=== PATIENT | female | born 1960 | race Hispanic/Latino ===

== ENCOUNTER 2021-12-24 21:21 | Emergency (ER) | payer OTHER ==
[~2021-12-24] VITALS: Ht 152.4 cm; Wt 62.1 kg
[2021-12-24] MEDS: 0.9% NACL 500ML IV.SOLN 500 ML IV ONE (21:51)
[2021-12-24] MEDS: MORPHINE 4 MG SYG IVP ONE (21:51)
[2021-12-24] MEDS: ONDANSETRON 4MG INJ IVP ONE (21:51)
[2021-12-24 21:53] LABS: BASOPHILS % (AUTO) 0.4 % (0.0-5.0); EOSINOPHILS % (AUTO) 1.8 % (0.0-8.0); HEMATOCRIT 44.7 % (36-48); MEAN CORPUSCULAR HEMOGLOBIN 29.6 pg (27.0-33.0); MEAN CORPUSCULAR HGB CONC 33.6 g/dL (32.0-36.0); MEAN CORPUSCULAR VOLUME 88.2 fL (79-99); MONOCYTES % (AUTO) 4.5 % (3.0-13.0); PLATELET COUNT (AUTO) 202 K/uL (130-400); RED BLOOD CELL COUNT(AUTO) 5.07 MIL/uL (4.00-5.50); RED CELL DISTRIBUTION WIDTH 12.4 % (11.0-15.5); WHITE BLOOD COUNT (AUTO) 9.8 K/uL (4.8-10.8)
[2021-12-24 21:58] LABS: APPEARANCE,URINE Clear (CLEAR); BILIRUBIN,URINE Negative (NEGATIVE); COLOR,URINE Yellow (YELLOW); GLUCOSE, URINE (UA) Negative (NEGATIVE); KETONES,URINE Trace mg/dL (NEGATIVE); LEUKOCYTE ESTERASE ,URINE Moderate (NEGATIVE); NITRATE,URINE Negative (NEGATIVE); OCCULT BLOOD,URINE Negative (NEGATIVE); PROTEIN,URINE Negative (NEGATIVE)
[2021-12-24 22:05] LABS: CREATININE 0.9 mg/dL (0.5-1.5); POTASSIUM 4.1 mmol/L (3.5-5.1)
[2021-12-24 22:08] LABS: ALBUMIN 4.2 g/dL (3.5-5.0); BILIRUBIN,TOTAL 0.4 mg/dL (0.2-1.0); TOTAL PROTEIN, SERUM 8.1 g/dL (6.0-8.3)
[2021-12-24 22:12] LABS: BACTERIA,URINE Few /HPF (None Seen); RBC,URINE 0-1 /HPF (0-1); SQUAMOUS EPITHELIAL CELL,UR Few /HPF (0-2)
[2021-12-24] MEDS: ORPHENADRINE CITRATE 30 MG/ML ML IVP ONE (22:52)
[2021-12-24] MEDS ORDERED: CEPH500B PO (23:26)
[2021-12-24] MEDS ORDERED: CYCL10TA16 PO (23:26)
[2021-12-24 23:31] VITALS: BP 141/77
== END 2021-12-24 23:41 | disposition home or self-care (01) ==
LOC: EDH 21:21
DX: M54.6 Pain in thoracic spine (principal); R10.9 Unspecified abdominal pain; Z88.8 Allergy status to other drugs, medicaments and biological substances; Z90.49 Acquired absence of other specified parts of digestive tract; Z98.890 Other specified postprocedural states
CPT/HCPCS: 36415; 74176; 80053; 81001; 85025; 87088; 96361; 96374; 96375; 99284; J2270; J2360; J2405; J7040

== ENCOUNTER → 2025-06-18 | Outpatient (CLI) | payer OTHER ==
[~2025-06-18] MED LIST: CEPH500B PO; CYCL10TA16 PO
== END | disposition home or self-care (01) ==
LOC: RAH 11:21
PROVIDERS: ATTEND Family Medicine
DX: Z12.31 Encounter for screening mammogram for malignant neoplasm of breast (principal)
CPT/HCPCS: 77067